=== PATIENT | male | born 1990 | race Two or more races ===

== ENCOUNTER 2020-11-23 09:51 | Emergency (ER) | payer OTHER ==
[~2020-11-23] VITALS: Ht 162.6 cm; Wt 60.6 kg
--- NOTE | 2020-11-23 10:14 | NUR ---
MD at bedside for exam. catalogue and special products manager completed.
--- NOTE | 2020-11-23 10:25 | NUR ---
Pt taken to CT by biofuels production technician via [employer] at this time. C/O OROSCO with N/V earlier today.
[2020-11-23] MEDS ORDERED: OXYcodone/APAP 5/325MG TABLET ONE (10:28)
[2020-11-23] MEDS ORDERED: ONDANSETRON ODT 4 MG ONE (10:28)
[2020-11-23] MEDS ORDERED: ONDANSETRON ODT 4 MG PO ONE (10:30)
[2020-11-23] MEDS ORDERED: OXYcodone/APAP 5/325MG TABLET PO ONE (10:30)
--- NOTE | 2020-11-23 10:37 | NUR ---
Pt back to room from CT without acute change. PO meds given as ordered and nut grader at bedside for PCXR.
--- NOTE | 2020-11-23 10:59 | NUR ---
Pt ambulatory back to radiology for more xrays per girlfriend in room.
--- NOTE | 2020-11-23 11:20 | NUR ---
CT results/Xray results reviewed. Noted PA/MD already awaiting neurosurgeon to call back for consult.
--- NOTE | 2020-11-23 11:29 | NUR ---
DR PERES SPOKE WITH DR STRICKLAND
[2020-11-23] MEDS ORDERED: SODIUM CHLORIDE 0.9% 1,000ML IVBOLUS ONE (11:30)
[2020-11-23] MEDS ORDERED: SODIUM CHLORIDE FLUSH 10ML SYR IVF ONE (11:30)
--- NOTE | 2020-11-23 11:30 | NUR ---
Pt states minimal pain relief after PO pain med on reassessment. Rate pain 6/10 still.
--- NOTE | 2020-11-23 11:38 | NUR ---
oracle technical architect at bedside for laceration cleaning and laboratory equipment cleaner present for draw at this time. Noted IV with NS bolus ordered. Pt aware.
[2020-11-23 11:52] LABS: BASOPHILS % (AUTO) 0 % (0-1); EOSINOPHILS % (AUTO) 0 % (1-7); LYMPHOCYTES % (AUTO) 14 % (22-44); MEAN CORPUSCULAR HEMOGLOBIN 29.3 pg (27.5-34.5); MEAN CORPUSCULAR HGB CONC 33.9 g/dL (33.2-36.2); MONOCYTES % (AUTO) 6 % (2-9); NEUTROPHILS % (AUTO) 80 % (42-75); PLATELET COUNT 266 x10^3/uL (130-400); RED BLOOD COUNT 5.41 x10^6/uL (4.38-5.82)
--- NOTE | 2020-11-23 11:54 | NUR ---
IV started with aseptic technique and NS bolus started. life support technician cleaning head wounds as ordered. Pt updated to awaiting neurosurgery to return ERP call for consult and that the ERP will then come in to discuss findings and plan of care.
[2020-11-23 11:57] LABS: MD NO
[2020-11-23 11:59] LABS: ALANINE AMINOTRANSFERASE 36 U/L (12-78); ALBUMIN 4.2 g/dL (3.4-5.0); ANION GAP 3 mmol/L (5-15); CALCIUM 9.1 mg/dL (8.5-10.1); CHLORIDE 107 mmol/L (98-107); CREATININE 0.74 mg/dL (0.7-1.3)
[2020-11-23 12:01] LABS: ALKALINE PHOSPHATASE 100 U/L (45-117); BILIRUBIN,TOTAL 0.6 mg/dL (0.2-1.0); TOTAL PROTEIN 7.9 g/dL (6.4-8.2)
--- NOTE | 2020-11-23 12:08 | NUR ---
MD at bedside discussing results and suggested plan of care.
[2020-11-23] MEDS ORDERED: MORPHINE SULFATE 4 MG/ML, 1ML ONE (12:10)
[2020-11-23] MEDS ORDERED: MORPHINE SULFATE 4 MG/ML, 1ML IVPush PRN (12:30)
--- NOTE | 2020-11-23 12:42 | NUR ---
Pt medicated for continued pain at this time and IV saline locked as NS bolus is now completed. VS reassessed at this time.
--- NOTE | 2020-11-23 13:12 | NUR ---
D/C instructions given with stated understanding of these. Work release provided with prescription and educated that Percocet prescription is called in to [facility] on [address] for pecan picker today.
[2020-11-23 13:22] VITALS: BP 132/64
== END 2020-11-23 13:25 | disposition home or self-care (01) ==
LOC: ED 10:49
DX: S06.0X1A Concussion with loss of consciousness of 30 minutes or less, initial encounter (principal); S02.0XXA Fracture of vault of skull, initial encounter for closed fracture; S02.119A Unspecified fracture of occiput, initial encounter for closed fracture; S00.83XA Contusion of other part of head, initial encounter; S00.01XA Abrasion of scalp, initial encounter; S00.81XA Abrasion of other part of head, initial encounter; R41.3 Other amnesia; Y04.0XXA Assault by unarmed brawl or fight, initial encounter; Y93.89 Activity, other specified; Y92.89 Other specified places as the place of occurrence of the external cause; Y99.8 Other external cause status
CPT/HCPCS: 36415; 70100; 70450; 70486; 71045; 80053; 85025; 96361; 96374; 99285; J2270; J7030; Q0162